=== PATIENT | female | born 1955 | race Caucasian/White ===

== ENCOUNTER → 2017-05-26 | Outpatient (CLI) | payer BC | LOC: MAMMO 15:13 → RAD 15:15 → MAMMO 15:15 | DX: Z12.31 Encounter for screening mammogram for malignant neoplasm of breast (principal) ==

== ENCOUNTER → 2018-08-04 | Outpatient (CLI) | payer BC | LOC: MAMMO 08-02 16:00 | DX: Z12.31 Encounter for screening mammogram for malignant neoplasm of breast (principal); R92.1 Mammographic calcification found on diagnostic imaging of breast ==

== ENCOUNTER → 2018-08-22 | Outpatient (CLI) | payer BC | LOC: MAMMO 07:02 | DX: R92.1 Mammographic calcification found on diagnostic imaging of breast (principal) ==

== ENCOUNTER → 2018-10-31 | Outpatient (CLI) | payer BC | LOC: RAD 07:15 | DX: K76.0 Fatty (change of) liver, not elsewhere classified (principal); K80.20 Calculus of gallbladder without cholecystitis without obstruction ==

== ENCOUNTER → 2019-11-08 | Outpatient (CLI) | payer BC | LOC: MAMMO 09:59 | DX: Z12.31 Encounter for screening mammogram for malignant neoplasm of breast (principal) ==

== ENCOUNTER → 2021-02-13 | Outpatient (CLI) | payer BC | LOC: MAMMO 09:15 | DX: Z12.31 Encounter for screening mammogram for malignant neoplasm of breast (principal) ==

== ENCOUNTER → 2022-02-09 | Outpatient (CLI) | payer BC | LOC: MAMMO 10:00 | DX: Z12.31 Encounter for screening mammogram for malignant neoplasm of breast (principal) ==

== ENCOUNTER → 2023-03-16 | Outpatient (CLI) | payer BC | LOC: MAMMO 15:00 | DX: Z12.31 Encounter for screening mammogram for malignant neoplasm of breast (principal) ==

== ENCOUNTER → 2024-07-10 | Outpatient (CLI) | payer BC | LOC: MAMMO 15:29 | DX: Z12.31 Encounter for screening mammogram for malignant neoplasm of breast (principal) ==